=== PATIENT | female | born 1975 | race Caucasian/White ===

== ENCOUNTER 2020-10-21 19:20 | Inpatient (IN) | payer BC ==
[~2020-10-21] VITALS: Ht 157.5 cm; Wt 73.0 kg
--- NOTE | ~2020-10-21 | HEMODYNAMI ---
PATIENT:ROSALIA LIEBERMAN MEDICAL RECORD: [id number] : 73 [id number] ADMISSION DATE: 10/21/20 Generatedon:19:46 Patient name: ROSALIA LIEBERMAN Patient #: [id number] SSN : [id number] : 1975 Date of study: 10/23/2020 Page: Of Hemodynamic Procedure Report Patient Data Patient Demographics Procedure consent was obtained First Name: ROSALIA Gender: Female Last Name: MIO : 1975 Patient #: [id number] Age: 45 year(s) Race: SSN: [id number] Additional ID: [id number] Contact details Address: [address] State: [place] City: [place] Zip code: [address] Admission Admission Data Admission Date: 10/21/2020 Admission Time: 21:35 Arrival Date: 10/23/2020 Arrival Time: 0:00 Admit Source: Other Insurance Payor: Private Room #: D.CV03 health insurance [facility] #: [id number] Height (in.): 62 BSA: 1.74 (m2) Height (cm.): 157.48 BMI: 29.44 (kg/m2) Weight (lbs.): 160.98 Weight (kg.): 73.02 Lab Results Lab Result Date: 10/23/2020 Lab Result Time: 0:00 Biochemistry Name Units Result Min Max BUN mg/dl 14 --(--*-)-- 7 18 Creatinine mg/dl 0.8 --(-*--)-- 0.6 1.3 eGFR ml/min 82.25722 *-(----)-- 90 120 NONAFRICAN CBC Name Units Result Min Max Hematocrit % 42.1 --(*---)-- 42 54 Hemoglobin g/dl 14 --(*---)-- 13.5 17.5 Procedure Procedure Types Cath Procedure Diagnostic Procedure [facility] w/Coronaries Sedation Charges Moderate Sedation 10-24 minutes Procedure Description Procedure Date Procedure Date: 10/23/2020 Procedure Start Time: 9:35 Procedure End Time: 9:44 Procedure Staff Name Function Elijah Chapa MD Performing Physician Clarice Eubanks RT Monitor Jagdish Merritt RN Nurse Rupa Vidal RT Scrub Procedure Data Cath Procedure Fluoroscopy Diagnostic fluoroscopy Total fluoroscopy Time: 1.1 time: 1.1 min min Diagnostic fluoroscopy Total fluoroscopy dose: 274 dose: 274 mGy mGy Contrast Material Contrast Material Type Amount (ml) Isovue 300 53 Entry Location Entry Primary Successful Side Size Upsize Upsize Entry Closure Succes sful Closure Location (Fr) 1 (Fr) 2 (Fr) Remarks Device Remarks Femoral Right 5 Fr Exoseal artery Estimated blood loss: 5 ml Diagnostic catheters Device Type Used For End Catheter Placement MULTIPACK JL 4.0 5Fr Left Coronary catheter Angiography MULTIPACK 3DRC 5Fr Right Coronary catheter Angiography MULTIPACK Pigtail 5 Fr LV Angiography catheter Procedure Complications No complications Procedure Medications Medication Administration Route Dosage Oxygen etCO2 Nasal cannula 2 l/min Lidocaine 2% added to field 20 Heparin Flush Bag added to field 2 bags (1000units/500ml NS) 0.9% NaCl I.V. 100 ml/hr unlisted medication I.V. drip 360 Versed I.V. 1 mg Fentanyl I.V. 50 mcg Versed I.V. 1 mg Fentanyl I.V. 50 mcg Versed I.V. 1 mg Fentanyl I.V. 50 mcg Versed I.V. 1 mg Fentanyl I.V. 50 mcg Hemodynamics Rest BSA: 1.74 (m2) HGB: 14 (g/dl) O2 Consumption: Estimated: 172.79 (ml/min) O2 Cons umption indexed: Estimated:99.3 (ml/min/m) Heart Rate: 70 (bpm) Pressure Samples Time Site Value (mmHg) Purpose Heart Use Rate(bpm) 9:40 LV 98/15,17 Snapshot 74 9:41 AO 99/52(74) Pullback 69 9:41 LV 88/16,10 Pullback 69 Gradients Valve Time Site 1 Site 2 Mean SEP/DFP Peak To Heart Use (mmHg) (sec/min) Peak Rate (mmHg) (bpm) Aortic 9:41 LV AO 0 15 0 69 88/16,10 99/52(74) Calculations Valve P-P Mean Valve Index Valve Source Name Gradient Area Flow (cm2) Aortic 0 0 0 0 Snapshots Pre Cath Intra NCS Post Cath Vital Signs Time Heart Resp SPO2 etCO2 NIBP Rhythm Pain Sedation Rate (ipm) (%) (mmHg) (mmHg) Status Level (bpm) 9:22:24 66 16 99 0 118/74(95) NSR 0 (11) 10(A) , No pain 9:27:40 72 19 99 32.8 119/79(90) NSR 0 (11) 10(A) , No pain 9:31:50 65 20 93 31.3 113/71(87) NSR 0 (11) 9(A) , No pain 9:35:58 66 16 93 32.8 115/77(89) NSR 0 (11) 9(A) , No pain 9:40:07 71 10 93 27.6 118/73(89) NSR 0 (11) 9(A) , No pain 9:44:21 77 14 94 28.4 115/66(87) NSR 0 (11) 10(A) , No pain Medications Time Medication Route Dose Verified Delivered Reason Notes Effectiveness by by 9:25:04 Versed I.V. 1 [address] [facility] Rod[facility]guez Merritt RN sedation 9:25:13 Fentanyl I.V. 50 mcg Elijah Dubon for [facility] Rod[facility]uez Merritt RN sedation 9:25:24 Oxygen etCO2 2 l/min Elijah Dubon used for Nasal [facility] Rod[facility]uez Merritt pigment weigher cannula 9:25:30 Lidocaine 2% added 20ml vial Elijah Nava for local to [facility] anesthetic field MD URIARTE 9:25:36 Heparin Flush added 2 bags Elijah Nava used for Bag to [facility] procedure (1000units/500ml field MD URIARTE NS) 9:25:44 nexterone drip I.V. 360mg/200 Elijah Dubon Per continu ed drip ml [facility] Rod[facility]guez Merritt RN physician from icu MD via pump. at 0.5 mg/min 9:25:45 0.9% NaCl I.V. 100 ml/hr Elijah Dubon Per [facility] Rod[facility]guez Merritt RN physician 9:28:33 Versed I.V. 1 mg Eli[address]on for [facility] Rod[facility]guez Merritt RN sedation 9:28:36 Fentanyl I.V. 50 mcg Elijah Murciaie for [facility] Rod[facility]guez Merritt RN sedation 9:34:36 Versed I.V. 1 mg Elijah Murciaie for [facility] Rod[facility]guez Merritt RN sedation 9:34:40 Fentanyl I.V. 50 mcg Elijah Murciaie for [facility] Rod[facility]guez Merritt RN sedation 9:39:15 Versed I.V. 1 mg Elijah Murciaie for [facility] Rod[facility]guez Merritt RN sedation 9:39:18 Fentanyl I.V. 50 mcg Elijah Murciaie for [facility] Rod[facility]guez Merritt RN sedation Procedure Log Time Note 8:51:38 Informed consent obtained and on chart 8:51:56 Diagnostic Cath Status : Urgent 8:52:57 Lab Result : BUN 14 mg/dl 8:52:57 Lab Result : eGFR NONAFRICAN 82.77686 ml/min 8:52:57 Lab Result : Hemoglobin 14 g/dl 8:52:57 Lab Result : Creatinine 0.8 mg/dl 8:52:57 Lab Result : Hematocrit 42.1 % 8:53:34 Arrival Date: 10/23/2020 12:00:00 AM 8:53:35 Admit Source: Other 8:53:38 Patient Height : 62 inches 8:53:43 Patient Weight : 160.98 lbs 8:53:48 Insurance Payor : Private health insurance 8:54:25 ACC Patient presents with Unstable Angina CCS Anginal Class 2--Slight limitation of ordinary activity. 8:54:28 Procedure Status Urgent Heart Cath (IP). 8:54:29 Time tracking: Regular hours (M-F 7:00 - 5:00) 8:54:34 Plan of Care:Hemodynamics will remain stable., Cardiac rhythm will remain stable., Comfort level will be maintained., Respiratory function will remain adequate., Patient/ family verbilizes understanding of procedure., Procedure tolerated without complication., Recovers from procedure without complications.. 9:09:56 Clarice Eubanks RT(R) sent for patient. Start room use. 9:21:20 Patient received from CVICU to CCL 1 Alert and oriented. Tansferred to table in Supine position. 9:21:21 Warm blankets applied, and mitchell hugger turned on for patient comfort. 9:21:21 Correct patient and procedure confirmed by team. 9:21:22 ECG and BP/O2 sat monitors applied to patient. 9:21:22 Vital chart was started 9:21:23 Baseline sample Acquired. 9:21:29 Rhythm: sinus rhythm 9:21:31 Full Disclosure recording started 9:21:37 H&P Date Dictated: 10/23/2020 New H&P dictated by physician.. 9:21:39 Pre-procedure instructions explained to patient. 9:21:40 Pre-op teaching completed and patient verbalized understanding. 9:21:42 Family in patients room. 9:21:43 Patient NPO since Midnight. 9:21:50 Is the patient allergic to Iodine/contrast media? No. 9:21:52 Was the patient premedicated? Yes 9:21:53 Is patient on blood thinner?Yes 9:21:57 ACC The patient was administered the following blood thiners within the last 24 hours: ACCLovenox 9:22:56 Patient diabetic? No. 9:22:58 Previous problem with sedation/anesthesia? No ? 9:23:00 Snore? No 9:23:02 Sleep apnea? No 9:23:03 Deviated septum? No 9:23:04 Opens mouth fully? Yes 9:23:05 Sticks out tongue? Yes 9:23:07 Airway obstruction? No ? 9:23:10 Dentures? No ? 9:23:14 Pre procedure: right dorsailis pedis pulse 2+ Normal; easily identifiable; not easily obliterated 9:23:16 Pre procedure: left dorsailis pedis pulse 2+ Normal; easily identifiable; not easily obliterated 9:23:18 Patient pain scale 0/10 ?. 9:23:21 Modified Shane's test Radial > 7 seconds. 9:23:29 Lab results completed and on chart. 9:23:35 Right groin area was prepped with chlora-prep and draped in sterile fashion 9:23:36 Alarms reviewed by R. N. 9:23:37 Sharps counted by scrub and verified by R.N. 9:23:38 Physician arrived 9:23:39 --------ALL STOP TIME OUT------ 9:23:39 Final Timeout: patient, procedure, and site verified with staff and physician. All members of the team are in agreement. 9:23:42 Right groin site verified by team. 9:23:46 Fire Safety Assessment: A--An alcohol-based skin anteseptic being used preoperatively., C--Open oxygen or nitrous oxide is being used., D--An ESU, laser, or fiber-optic light is being used. 9:23:49 Physical assessment completed. ASA score P 2 - A patient with mild systemic disease as per Elijah Chapa MD. 9:24:10 2) 60-89 Mildly reduced kidney function, and other findings (as for stage 1) point to kidney disease. 9:25:04 Versed 1 mg I.V. was administered by Jagdish Merritt RN; for sedation; Verbal order read back and verified. 9:25:13 Fentanyl 50 mcg I.V. was administered by Jagdish Merritt RN; for sedation; Verbal order read back and verified. 9:25:24 Oxygen 2 l/min etCO2 Nasal cannula was administered by Jagdish Merritt RN; used for procedure; Verbal order read back and verified. 9:25:28 Maximum allowable contrast dose (3.7 X eGFR X 0.75)227 ml. 9:25:30 Lidocaine 2% 20ml vial added to field was administered by Elijah Chapa MD; for local anesthetic; Verbal order read back and verified. 9:25:32 Sedation plan: IV Moderate Sedation Medication:Versed, Fentanyl 9:25:36 Heparin Flush Bag (1000units/500ml NS) 2 bags added to field was administered by Elijah Chapa MD; used for procedure; Verbal order read back and verified. 9:25:37 Use device set Femoral Dx 9:25:39 ACIST Syringe (47076) opened to sterile field. 9:25:39 Bag Decanter () opened to sterile field. 9:25:40 Medline Cath Pack ([id number]) opened to sterile field. 9:25:42 ACIST Hand Control (58724) opened to sterile field. 9:25:42 ACIST Manifold (96749) opened to sterile field. 9:25:42 DIAGNOSTIC Multipack 5Fr catheter set ([id number]) opened to sterile field. 9:25:43 Tegaderm 4 x 4 (1626W) opened to sterile field. 9:25:44 nexterone drip 360mg/200 ml I.V. drip was administered by Jagdish Merritt RN; Per physician; continued from icu via pump. at 0.5 mg/min Verbal order read back and verified. 9:25:44 SHEATH 5FR Mather (RGI743) opened to sterile field. 9:25:45 0.9% NaCl 100 ml/hr I.V. was administered by Jagdish Merritt RN; Per physician; Verbal order read back and verified. 9:25:45 EMERALD Guide Wire (267-720) opened to sterile field. 9:28:33 Versed 1 mg I.V. was administered by Jagdish Merritt RN; for sedation; Verbal order read back and verified. 9:28:36 Fentanyl 50 mcg I.V. was administered by Jagdish Merritt RN; for sedation; Verbal order read back and verified. 9:29:27 Pt complains that her IV to lt hand is painful and requests a new IV and for that one to be removed when she is asleep. 9:34:36 Versed 1 mg I.V. was administered by Jagdish Merritt RN; for sedation; Verbal order read back and verified. 9:34:40 Fentanyl 50 mcg I.V. was administered by Jagdish Merritt RN; for sedation; Verbal order read back and verified. 9:35:35 Procedure started. 9:35:45 Local anesthetic to right femoral artery with Lidocaine 2% by Elijah Chapa MD.INITIAL ACCESS ONLY 9:35:53 A 5 Fr sheath was inserted into the Right Femoral artery 9:36:07 A MULTIPACK JL 4.0 5Fr catheter was advanced over the wire and used for Left Coronary Angiography. 9:37:13 LCA angiography performed. 9:37:16 Injector settings: Ml/sec: 3, Volume: 6, 9:38:57 Catheter removed. 9:39:15 Versed 1 mg I.V. was administered by Jagdish Merritt RN; for sedation; Verbal order read back and verified. 9:39:17 A MULTIPACK 3DRC 5Fr catheter was advanced over the wire and used for Right Coronary Angiography. 9:39:18 Fentanyl 50 mcg I.V. was administered by Jagdish Merritt RN; for sedation; Verbal order read back and verified. 9:39:35 RCA angiography performed. 9:39:41 Injector settings: Ml/sec: 3, Volume: 6, 9:39:52 Catheter removed. 9:39:57 A MULTIPACK Pigtail 5 Fr catheter was advanced over the wire and used for LV Angiography. 9:40:59 LV hemodynamics recorded. 9:41:21 LV gram done using CONROY 9:41:27 Injector settings: Ml/sec: 5, Volume: 15, 9:41:40 EF : 40 % 9:41:41 EXOSEAL 5Fr (EX500) opened to sterile field. 9:41:58 Sheath removed intact; hemostasis achieved with Exoseal to the Right Femoral artery. 9:42:02 Procedure ended.(Physican Out) 9:42:22 Fluoroscopy time 01.10 minutes. 9:42:27 Fluoroscopy dose: 274 mGy 9:42:27 Flurop Dose total: 274 9:42:32 Dose Area Product 03222 mGy/cm. 9:42:36 Contrast amount:Isovue 300 53ml. 9:42:38 Maximum allowable dose exceeded? No. 9:42:39 Sharps counted by scrub and verified by R.N. 9:42:40 Insertion/operative site no bleeding no hematoma. 9:42:43 Post-op/insertion site Right Femoral artery dressed using a 4 x 4 and Tegaderm. 9:42:46 Post right femoral artery:stable 9:42:47 Post Procedure Pulses reassessed and unchanged 9:42:51 Post procedure rhythm: unchanged. 9:42:53 Estimated blood loss: 5 ml 9:43:13 Post procedure instruction explained to patient.Patient verbalizes understanding. 9:43:14 Patient needs reinforcement of post procedure teaching. 9:43:49 Procedure type changed to Cath procedure, Diagnostic procedure, LHC, [facility] w/Coronaries, Sedation Charges, Moderate Sedation 10-24 minutes 9:43:50 Procedure and supply charges have been captured, reviewed, submitted and are correct. 9:43:55 Procedure Complication : No complications 9:43:58 Vital chart was stopped 9:44:00 [facility] Findings: mild to moderate CAD (<70%) 9:44:02 Operative report dictated upon procedure completion. 9:44:03 See physician's report for complete and final results. 9:44:05 Report given to CVICU. 9:44:13 Patient transfered to CVICU with Stretcher. 9:44:16 Procedure ended. 9:44:16 Full Disclosure recording stopped 9:44:20 End room use (Document Last) 9:45:51 End room use (Document Last) 9:46:15 End room use (Document Last) 9:46:28 End room use (Document Last) Device Usage Item Name Manufacture Quantity Catalog Hospital Part Current Minimal L ot# / Number Charge Number Stock Stock Serial# Code ACIST Acist 1 55464 279795 375161 375169 20 Syringe Medical (72828) Systems Inc Bag Microtek 1 2001S 188122 18514 760665 5 Decanter Medical Inc. () Medline Medline 1 [id number] 828948 03268 176630 5 Cath Pack ([id number]) ACIST Hand Acist 1 46737 869417 734135 160309 5 Control Medical (48769) Systems Inc ACIST Acist 1 89824 211151 621556 441703 5 Manifold Medical (63636) Systems Inc DIAGNOSTIC Cardinal 1 [id number] 659724 35608 227104 30 Multipack Health 5Fr catheter set (QJ0675) Tegaderm 4 3M 1 1626W 480977 800387 169721 5 x 4 (1626W) SHEATH 5FR Terumo 1 TFP708 109313 693502 233399 5 Mather (LPC712) EMERALD Cardinal 1 502-455 162109 901306 456738 5 Guide Wire Health (502-455) MULTIPACK Cardinal 1 753221 5 JL 4.0 5Fr Health catheter MULTIPACK Cardinal 1 555205 5 3DRC 5Fr Health catheter MULTIPACK Cardinal 1 768898 5 Pigtail 5 Health Fr catheter EXOSEAL 5Fr Cardinal 1 EX500 751369 813629 816517 10 (EX500) Health Signature Audit Honor Stage Time Signature Unsigned Intra-Procedure 10/23/2020 Clarice Eubanks 9:45:51 AM RT(R) Intra-Procedure 10/23/2020 Clarice Eubanks 9:46:15 AM RT(R) Intra-Procedure 10/23/2020 Jagdish Merritt RN 9:46:28 AM Intra-Procedure 10/23/2020 Elijah Yip 9:46:52 AM [facility] [address] [place] [address]
[2020-10-21] MEDS ORDERED: ARMOUR THYROID30 MG PO (19:28)
--- NOTE | 2020-10-21 19:30 | NUR ---
DURING TRIAGE QUESTIONS PRIOR TO VS BEING TAKEN PT BEGAN PROFUSELY VOMITING. ASSISTED TO WC AND TAKEN TO EXAM ROOM TO COMPLETED TRIAGE.
--- NOTE | 2020-10-21 19:41 | NUR ---
SYNCHRONIZED CARDIOVERSION PER CHRISTINE KELLY 100J. PT CONVERTED TO SR
[2020-10-21 20:00] VITALS: BP 96/59
[2020-10-21 20:15] LABS: BASOPHILS 0.2 % (0-2); EOSINOPHILS 1.2 % (0-7); HEMATOCRIT 42.1 % (36.0-48.0); IMMATURE GRANULOCYTES 0.2 % (0-5); LYMPHOCYTE ABS# 2.35 10x3/uL (1.18-3.74); LYMPHOCYTES 14.2 % (15-50); MCH 32.1 pg (26.0-34.0); MCHC 33.3 g/dL (31.0-37.0); MCV 96.6 fL (80.0-100.0); MEAN PLATELET VOLUME 9.6 fL (7.4-10.4); MONOCYTES 2.5 % (2-11); NEUTROPHIL ABS# 13.48 10x3/uL (1.56-6.13); NEUTROPHILS 81.7 % (40-80); PLATELET COUNT 294 10x3/uL (130-400); RBC 4.36 10x6/uL (4.00-5.40); RDW 14.1 % (11.5-14.5); WBC 16.5 10x3/uL (4.8-10.8)
[2020-10-21 20:22] LABS: ANION GAP 17.1 mmol/L (8-16); CALCIUM 8.9 mg/dL (8.5-10.1); CREATININE - SERUM 0.9 mg/dL (0.6-1.3); POTASSIUM - SERUM 3.1 mmol/L (3.5-5.1)
[2020-10-21 20:23] LABS: APTT 29.5 SECONDS (22.8-39.4); INR 1.08 (0.85-1.17)
[2020-10-21 20:24] LABS: D-DIMER-QUANTITATIVE 0.34 ug/mLFEU (0.20-0.54)
[2020-10-21 20:43] LABS: ALBUMIN 3.9 g/dL (3.4-5.0); BILIRUBIN - TOTAL 0.56 mg/dL (0.2-1.3); C-REACTIVE PROTEIN 2.2 mg/dL (0.0-0.9); MAGNESIUM - SERUM 1.8 mg/dL (1.8-2.4); PROTEIN - SERUM 6.7 g/dL (6.4-8.2)
[2020-10-21 20:51] LABS: TROPONIN-I 0.158 ng/mL (0.000-0.060)
[2020-10-21 21:00] VITALS: BP 99/68
[2020-10-21 21:04] LABS: BILIRUBIN NEGATIVE (NEGATIVE); KETONE NEGATIVE (NEGATIVE); NITRITE NEGATIVE (NEGATIVE); UROBILINOGEN NORMAL mg/dL (< 2)
[2020-10-21 21:15] LABS: UDS - AMPHET NEGATIVE QUAL (NEGATIVE); UDS - BARB NEGATIVE QUAL (NEGATIVE); UDS - BENZO NEGATIVE QUAL (NEGATIVE); UDS - COCAINE NEGATIVE QUAL (NEGATIVE); UDS - OPIATE NEGATIVE QUAL (NEGATIVE); UDS - PCP NEGATIVE QUAL (NEGATIVE); UDS - THC POSITIVE QUAL (NEGATIVE)
[2020-10-21 22:00] VITALS: BP 105/59
[2020-10-21] MEDS ORDERED: CYMBALTA60 MG PO (22:45)
[2020-10-21] MEDS ORDERED: UNITHROID50 MCG PO (22:50)
[2020-10-21 22:51] VITALS: BP 127/84; BMI 29.1
[2020-10-21 23:00] VITALS: BP 100/50
[2020-10-21 23:33] VITALS: Ht 157.5 cm; Wt 73.0 kg
[2020-10-22] VITALS (21 sets, daily range): BP systolic 83–128; BP diastolic 40–78
[2020-10-22 03:05] LABS: BASOPHILS 0.2 % (0-2); HEMATOCRIT 37.1 % (36.0-48.0); HEMOGLOBIN 12.3 g/dL (12-16); IMMATURE GRANULOCYTES 0.3 % (0-5); LYMPHOCYTE ABS# 3.01 10x3/uL (1.18-3.74); MCH 31.9 pg (26.0-34.0); MCHC 33.2 g/dL (31.0-37.0); MCV 96.1 fL (80.0-100.0); MEAN PLATELET VOLUME 9.7 fL (7.4-10.4); MONOCYTES 5.9 % (2-11); NEUTROPHIL ABS# 9.67 10x3/uL (1.56-6.13); NEUTROPHILS 70.6 % (40-80); PLATELET COUNT 271 10x3/uL (130-400); RBC 3.86 10x6/uL (4.00-5.40); RDW 14.1 % (11.5-14.5); WBC 13.7 10x3/uL (4.8-10.8)
[2020-10-22 03:26] LABS: ALKALINE PHOSPHATASE 56 U/L (30-120); ALT (SGPT) 19 U/L (10-68); BILIRUBIN - TOTAL 0.36 mg/dL (0.2-1.3); CALCIUM 8.2 mg/dL (8.5-10.1); CHLORIDE - SERUM 107 mmol/L (98-107); CREATININE - SERUM 0.7 mg/dL (0.6-1.3); MAGNESIUM - SERUM 2.1 mg/dL (1.8-2.4); PHOSPHOROUS 2.5 mg/dL (2.5-4.9); PROTEIN - SERUM 5.8 g/dL (6.4-8.2); SODIUM 139 mmol/L (136-145); UREA NITROGEN 13 mg/dL (7-18); eGFR NON AFRICAN AMERICAN > 90 mL/min (90-120)
[2020-10-22 03:28] LABS: CALC OSMOLALITY 280 mosm/kg (275-300); GLUCOSE 158 mg/dL (74-106); POTASSIUM - SERUM 3.8 mmol/L (3.5-5.1)
[2020-10-22 06:12] LABS: T4 THYROXIN - FREE 0.9 ng/dL (0.76-1.46); THYROID STIMULATING HORMONE 7.28 uIU/mL (0.36-3.74)
[2020-10-22 06:26] LABS: TROPONIN-I 8.123 ng/mL (0.000-0.060)
--- NOTE | 2020-10-22 08:20 | NUR ---
UP TO BATHROOM, AMBULATES WITH GOOD GAIT. DENIES ANY DIZZYNESS, HEADACHES, PAIN OR DISCOMFORT OF ANY KIND. CORDARONE GTT CONTINUES AT 0.5. IV RIGHT FOREARM FLUSHED WITHOUT DIFFICULTY. MONITOR SR WITH PROLONG QT INTERVAL. BREAKFAST SERVED
[2020-10-22 11:04] LABS: BASOPHILS 0.3 % (0-2); EOSINOPHILS 1.8 % (0-7); HEMATOCRIT 39.2 % (36.0-48.0); HEMOGLOBIN 12.8 g/dL (12-16); IMMATURE GRANULOCYTES 0.2 % (0-5); LYMPHOCYTE ABS# 3.23 10x3/uL (1.18-3.74); LYMPHOCYTES 23.7 % (15-50); MCH 31.7 pg (26.0-34.0); MCHC 32.7 g/dL (31.0-37.0); MEAN PLATELET VOLUME 10.7 fL (7.4-10.4); MONOCYTES 7.9 % (2-11); NEUTROPHIL ABS# 9.01 10x3/uL (1.56-6.13); NEUTROPHILS 66.1 % (40-80); PLATELET COUNT 422 10x3/uL (130-400); RBC 4.04 10x6/uL (4.00-5.40); RDW 14.5 % (11.5-14.5); WBC 13.6 10x3/uL (4.8-10.8)
[2020-10-22 11:10] LABS: CALCIUM 8.4 mg/dL (8.5-10.1); CARBON DIOXIDE 24.2 mmol/L (21.0-32.0); CHOL - HDL RATIO 3.5 ratio (2.3-4.1); CHOLESTEROL, TOTAL 162 mg/dL (0-200); CREATININE - SERUM 0.7 mg/dL (0.6-1.3); HDL CHOLESTEROL 47 mg/dL (32-96); LDL CHOLESTEROL 101 mg/dL (0-100); LDL-HDL RATIO 2.1 ratio (1.5-3.5); TRIGLYCERIDE 70 mg/dL (30-200); UREA NITROGEN 15 mg/dL (7-18); eGFR NON AFRICAN AMERICAN > 90 mL/min (90-120)
[2020-10-22 11:25] LABS: CHLORIDE - SERUM 106 mmol/L (98-107); SODIUM 137 mmol/L (136-145)
[2020-10-22 11:30] LABS: ALT (SGPT) 27 U/L (10-68); CALC OSMOLALITY 275 mosm/kg (275-300); GLUCOSE 110 mg/dL (74-106)
[2020-10-22 11:31] LABS: POTASSIUM - SERUM 4.2 mmol/L (3.5-5.1)
[2020-10-23] VITALS (12 sets, daily range): BP systolic 92–107; BP diastolic 53–65
[2020-10-23 04:40] LABS: BASOPHILS 0.5 % (0-2); EOSINOPHILS 3.8 % (0-7); HEMATOCRIT 36.4 % (36.0-48.0); IMMATURE GRANULOCYTES 0.1 % (0-5); LYMPHOCYTES 28.2 % (15-50); MCH 31.9 pg (26.0-34.0); MCV 96.8 fL (80.0-100.0); MEAN PLATELET VOLUME 9.5 fL (7.4-10.4); MONOCYTES 9.9 % (2-11); NEUTROPHIL ABS# 4.68 10x3/uL (1.56-6.13); NEUTROPHILS 57.5 % (40-80); RBC 3.76 10x6/uL (4.00-5.40); RDW 14.2 % (11.5-14.5)
[2020-10-23 04:41] LABS: PLATELET COUNT 250 10x3/uL (130-400); WBC 8.2 10x3/uL (4.8-10.8)
[2020-10-23 04:54] LABS: ALKALINE PHOSPHATASE 54 U/L (30-120); BILIRUBIN - TOTAL 0.55 mg/dL (0.2-1.3); CALC OSMOLALITY 279 mosm/kg (275-300); CALCIUM 8.3 mg/dL (8.5-10.1); CARBON DIOXIDE 26.3 mmol/L (21.0-32.0); CHLORIDE - SERUM 106 mmol/L (98-107); CREATININE - SERUM 0.8 mg/dL (0.6-1.3); GLUCOSE 117 mg/dL (74-106); MAGNESIUM - SERUM 1.8 mg/dL (1.8-2.4); POTASSIUM - SERUM 3.7 mmol/L (3.5-5.1); SODIUM 139 mmol/L (136-145); UREA NITROGEN 14 mg/dL (7-18); eGFR NON AFRICAN AMERICAN 82 mL/min (90-120)
[2020-10-23 05:01] LABS: ALT (SGPT) 19 U/L (10-68); PHOSPHOROUS 3.7 mg/dL (2.5-4.9)
--- NOTE | 2020-10-23 07:30 | NUR ---
PT LAYING IN BED, RR EVEN AND UNLABORED. DENIES NEEDS OR PAIN AT THIS TIME. SPOUSE AT BEDSIDE. CALL LIGHT WITHIN REACH. BED IN LOWEST POSITION. REPORT RECIEVED. PLAN OF CARE ASSUMED. SEE FLOWSHEET FOR ASSESSMENT DETAILS
--- NOTE | 2020-10-23 08:34 | NUR ---
PREOP COMPLETE. AWAITING IMPERSONATOR CHARACTER.
--- NOTE | 2020-10-23 10:00 | NUR ---
PT BACK FROM [facility] OPERATIONS INTELLIGENCE OFFICER. VSS AT THIS TIME. REFER TO FLOWSHEET FOR EXACT MEASUREMENTS. MOTHER IN ROOM AT THIS TIME. [facility] AT BEDSIDE TALKING WITH MOTHER. PULSES PALPABLE IN RLE. RIGHT GROIN INCISION NOTED. DRESSING DCI. NO SIGN OF BLEEDING, REDNESS, SWELLING, OR DRAINAGE NOTED. BED IN LOWEST POSITION. CALL LIGHT WITHIN REACH.
[2020-10-23] MEDS ORDERED: BETAPACE 80 MG80 MG PO (14:06)
[2020-10-23] MEDS ORDERED: COZAAR50 MG PO (14:06)
--- NOTE | 2020-10-23 15:48 | NUR ---
D/C INSTRUCTIONS RECIEVED. PRESCRIPTIONS RECIEVED. PT VERBALIZED UNDERSTANDING. BOTH PIV'S D/C WITH CATHETER TIP INTACT. PT LEFT AMBULATING PER REQUEST WITH ALL BELONGINGS TO PERSONAL VEHICLE.
--- NOTE | 2020-10-24 08:47 | EC ---
PATIENT:ROSALIA LIEBERMAN DATE OF SERVICE: 10/21/20 SEX: F MEDICAL RECORD: [id number] DATE OF : [birth year] LOCATION:[place] [address] AGE OF PATIENT: 45 ADMISSION DATE: 10/21/20 REFERRING PHYSICIAN: INTERPRETING PHYSICIAN: NIKKIE SPANGLER MD ECHOCARDIOGRAM REPORT ECHO CHARGES 4 ECHO COMPLETE Date: 10/21/20 CLINICAL DIAGNOSIS: SOB/A-FIB ECHOCARDIOGRAPHIC MEASUREMENTS (adult normal given) AC root (d.<3.7cm) 2.9 cm LV Septum d (<1.2 cm> 1.2 cm Valve Excursion 1.9 cm LV Septum (systole) 1.5 cm Left Atria (s.<4.0cm> 3.2 cm LVPW d(<1.2cm) 1.0 cm RV (d.<2.3cm) 2.4 cm LVPW (sytole) 1.7 cm LV diastole(<5.6CM) 4.5 cm MV E-F(>70mm/sec) cm LV systole 3.1 cm LVOT Diameter 1.8 cm MV exc.(>10mm) cm Est.ejection fraction (50-75%) % DOPPLER: LVIT cm/sec A cm/sec E 104 cm/sec LA cm/sec RVSP 15.1 mmHg LVOT 64.0 cm/sec AOP1/2T m/s Asc. Ao 97.0 cm/sec RVOT 66.0 cm/sec RA cm/sec PA 69.0 cm/sec AV Gradient Peak 3.8 mmHg AV Mean 2.2 mmHg AV Area 1.5 cm MV Gradient Peak 3.7 mmHg MV Mean 1.6 mmHg MV Area cm COMMENTS: Retail Field Supervisor: 1 TUNDE ADONIS Bench Shear Operator: 3 Dr. Henderson TAPE# PACS Pericardial Effusion N DATE OF SERVICE: Adequate 2D, color flow imaging, spectral Doppler, and M-Mode. FINDINGS: No LVH. LV internal dimensions are normal. LV appears to be globally hypokinetic with reduced EF, estimated EF at 35% to 40%. Aortic valve is tricuspid. No evidence of stenosis by Doppler interrogation. Left atrium is normal at 3.2 cm. Mitral valve shows no prolapse. Trace MR. Right-sided chambers appear grossly normal. Mild TR. ECHOCARDIOGRAM REPORT [id number] ROSALIA LIEBERMAN TRANSINT:[id number] Voice Confirmation ID: [id number] DOCUMENT ID: [id number] NIKKIE SPANGLER MD at 0847 CC: [id number] DICTATION DATE: 10/22/20 1109 CONCRETE FOREMAN: 10/22/20 1425 DIS IN 10/23/20 [facility] [address] [facility], [facility]
--- NOTE | 2020-10-24 08:47 | CN ---
PATIENT NAME:ROSALIA LIEBERMAN MEDICAL RECORD: [id number] : 73 LOCATION:[facility] ADMIT DATE: 10/21/20 ACCOUNT: [id number] CONSULTING PHYSICIAN: NIKKIE SPANGLER MD REFERRING PHYSICIAN: CELSO HOUSTON MD DATE OF CONSULTATION: 10/22/2020 HISTORY OF PRESENT ILLNESS: A 45-year-old female with no known history of coronary artery disease, past medical history of hypothyroidism, on replacement, who was camping and had an abrupt onset of palpitations, shortness of breath, near syncope, diaphoresis, presented to the ER, found to be in a wide complex tachycardia, did not have a 12-lead during that point, only had short strip right throughout at 240, very irregular QRS duration appears to be about 160. She underwent cardioversion to atrial fibrillation. She does report recent effort intolerance. No shraddha volume overload. No anginal type symptomatology. We are asked to see her concerning her cardiovascular status. PAST MEDICAL HISTORY: History of hypothyroidism, on replacement. ALLERGIES: None known. MEDICATIONS: Include Synthroid 50 mcg p.o. daily, Cymbalta 60 mg p.o. daily. SOCIAL HISTORY: , smokes less than a pack a day, nondrinker. Occasional marijuana use. Works newsperson. Easily takes care of all her ADLs. REVIEW OF SYSTEMS: The patient reports easy bruising but reports no swollen glands. The patient reports no fever, no night sweats, no significant weight gain, no significant weight loss. No significant exercise tolerance. The patient reports no dry eyes, no irritation, no vision change. Patient reports no difficulty hearing and no ear pain. Patient reports no frequent nose bleeds or nose and sinus problems. Patient reports on arm pain on exertion. No shortness of breath while lying down. No history of heart murmur. Patient reports no cough, no wheezing or coughing up blood. Patient reports no abdominal pain, no vomiting. Normal appetite. No diarrhea and not vomiting blood. No nausea and no constipation. Patient reports no incontinence. No difficulty urinating. No hematuria. No increased frequency. Patient reports no muscle aches. No weakness, no arthralgias, no back pain. No swelling of the extremities. Patient reports no abnormal mole, no jaundice, no rashes. Reports no loss of consciousness. No weakness and no numbness. No seizures, dizziness, or headaches. The patient reports no depression, no sleep disturbance, feeling safe in a relationship and no alcohol abuse. Patient reports on fatigue. Reports no runny nose or sinus pressure. No itching, no hives, and no frequent sneezing. PHYSICAL EXAMINATION: GENERAL: No acute distress, appears stated age. VITAL SIGNS: Blood pressure 91/52, pulse 71, irregular. HEENT: Normocephalic, atraumatic. NECK: No bruits were noted. HEART: Irregular, rate is controlled. A II/ systolic ejection murmur. I do not hear an S3 gallop. LUNGS: Good air excursion. ABDOMEN: Soft and nontender. EXTREMITIES: Pulses 2+. No edema. CONSULT REPORT [id number] ROSALIA LIEBERMAN NEUROLOGIC: Grossly intact. IMPRESSION: Wide complex QRS. Potassium was slightly low at 3.1. QT intervals are normal at 12-lead at this point. EF mildly decreased at 45 to 50 of course, this is post-cardioversion. We will plan for diagnostic angiography to define coronary anatomy. Continue amiodarone drip currently, although I would not use amiodarone long-term given young age, etc. Further recommendations based on the above. TRANSINT:[id number] Voice Confirmation ID: [id number] DOCUMENT ID: [id number] NIKKIE SPANGLER MD at 0847 CC: [id number] DICTATION DATE: 10/22/20 1016 STEMMER MACHINE: 10/22/20 1129 DIS IN 10/23/20 [place] [address] [place] [address]
--- NOTE | 2020-10-24 08:48 | OP ---
PATIENT NAME: ROSALIA LIEBERMAN MEDICAL RECORD: [id number] :73 LOCATION[id number] ADMISSION DATE:10/21/20 SURGEON: NIKKIE SPANGLER MD DATE OF OPERATION: 10/23/2020 PROCEDURE: Left heart catheterization, selective coronary angiography, right femoral artery approach. CATHETERS: A 5-[place] sheath, 5/4 left and right Mary Carmen, 5/4 pig. The procedure was well tolerated. The patient returned to the toth. Sheath removed. FINDINGS: Left ventriculography in 30-degree CONROY view shows global hypokinesis. Overall function mildly reduced at 40%. CORONARY ANATOMY: Left main: Left main is free of disease. LAD: Free of disease in the diagonal system. Circumflex: Free of disease in the marginal system. Right coronary artery: Dominant artery. gives rise to PDA, free of disease. IMPRESSION: Mildly decreased LV systolic function. Normal coronary anatomy. 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 We will add Cozaar and start sotalol p.o. for antiarrhythmic. I would like to check an echo in 12 weeks to assess left ventricular function at that time assuring the patient has normal potassium, etc. Further recommendations based on the above. TRANSINT:[id number] Voice Confirmation ID: [id number] DOCUMENT ID: [id number] NIKKIE SPANGLER MD at 0848 CC: [id number] DICTATION DATE: 10/23/2052 [employer] CELL[employer] WORKER: 10/23/20 1627 DIS IN 10/23/20 [facility] [address] [facility] [place] [address]
== END 2020-10-23 15:49 | disposition home or self-care (01) | DRG 287 ==
LOC: D.ER 19:20 → D.CVICU 21:35
PROVIDERS: Family Medicine; Internal Medicine Interventional Cardiology; ADMIT Emergency Medicine; ATTEND Emergency Medicine
PROC: B2111ZZ Fluoroscopy of Multiple Coronary Arteries using Low Osmolar Contrast (ICD-10-PCS; 2020-10-23)
PROC: 4A023N7 Measurement of Cardiac Sampling and Pressure, Left Heart, Percutaneous Approach (ICD-10-PCS; principal; 2020-10-23 09:09)
DX: I47.2 Ventricular tachycardia (principal); R07.9 Chest pain, unspecified; R00.2 Palpitations; R42 Dizziness and giddiness; E03.9 Hypothyroidism, unspecified